=== PATIENT | male | born 1960 | race Caucasian/White ===

== ENCOUNTER 2016-08-24 14:39 | Emergency (ER) ==
[2016-08-24] MEDS ORDERED: ASPIRIN PO STA (14:51)
--- NOTE | 2016-08-24 14:51 | ED EKG INTERP ---
EKG Interpretation - EKG Time of EKG reading by physician:: 14:47 EKG Read and Signed by:: Fatmata Villar Jr EKG Interpretation (*Must complete 3 of following elements*): Abnormal Rate: 89 Rhythm: nsr [place]: left QRS: normal RI Interval: normal Attestation - Scribe Verification/Attestation Scribe:: Alexus Hutchinson Acting as Scribe for:: Fatmata Villar Jr Scribe documention review:: This chart was documented by a scribe and accurately reflects the service the provider performed and the decisions made by the provider.
[2016-08-24 15:02] LABS: MANUAL DIFF NEEDED? NO
[2016-08-24 15:08] LABS: BASO% 0.4 % (0.0-0.8); HEMATOCRIT 39.7 % (42.0-52.0); HEMOGLOBIN 13.7 g/dL (14.0-18.0); LYMPH# 0.56 X1000 (1.2-3.4); LYMPH% 10.8 % (20.5-51.1); MCH 31.4 PG (27-31); MCHC 34.5 g/dL (33-37); MCV 90.8 FL (81-99); MONO# 0.51 X1000 (0.11-0.59); MONO% 9.8 % (1.7-9.3); MPV 10.9 FL (7.4-10.4); PLT 111 X1000 (130-400); RBC 4.37 XMIL (4.7-6.1)
[2016-08-24 15:17] LABS: PROTIME 10.6 Seconds (9.2-11.7); PTT 24.3 Seconds (22.0-36.0)
[2016-08-24 15:21] LABS: AGAP 19; ALBUMIN 5.2 g/dL (3.5-5.0); ALKALINE PHOSPHATASE 62 U/L (32-122); BUN 11 mg/dL (8-22); CHLORIDE 91 mmol/L (98-107); COSMO 270; GOT 199 U/L (10-34); GPT 173 U/L (10-44); MAGNESIUM 1.6 mg/dL (1.5-2.7); POTASSIUM 4.5 mmol/L (3.5-5.1); SODIUM 135 mmol/L (136-145); TCO2 25 mmol/L (25-35); TOTAL BILIRUBIN 0.91 mg/dL (0.20-1.00); TOTAL PROTEIN 7.7 g/dL (6.3-8.3)
[2016-08-24 15:24] LABS: CK PROFILE 226 U/L (24-204)
[2016-08-24 15:38] LABS: CK INDEX 1.6 (0.0-2.5); CK-MB 3.62 ng/mL (0.0-5.0)
--- NOTE | 2016-08-24 16:00 | Diag Imaging Result Document ---
PROCEDURE NAME: CHEST-2 VIEWS - 08/24/2016 CHEST 2 VIEWS: COMPARISON: No comparison exam. FINDINGS: Heart size is normal. There is mild tortuosity of the thoracic aorta. The lungs appear clear. There is no pleural effusion or pneumothorax seen. IMPRESSION: No evidence of acute disease.
[2016-08-24 18:17] LABS: CK INDEX 1.5 (0.0-2.5); CK-MB 3.52 ng/mL (0.0-5.0)
--- NOTE | 2016-08-24 18:18 | PROVIDER DOCUMENTATION ---
HPI-General Adult - General Chief Complaint: Alcohol Withdrawal Stated Complaint: WITHDRAWLS Time Seen by Provider: 08/24/16 16:50 Source: patient, family Allergies/Adverse Reactions: Patient Allergies Allergy/AdvReac Type Severity Reaction Status Date / Time No Known Allergies Allergy Verified 08/24/16 16:31 - History of Present Illness -Gen Adult Nature of Presenting Problems: 55 year old WM presents with c/o shaking for 2-3 days. pt reports he drinks 1 bottle of wine a day and has drank heavier at times. pt reports he decided to seek assistance with withdrawal this evening because he is currently being monitored with the [facility] because of alcohol abuse and he is mandated to random alcohol and drug testing. he reports he was suppossed to be tested today and chose to seek treatment for withdrawal. he reports he last drank 2-3 days ago. pt reports he finished 12 week detox at [facility] in March. pt reports he has had chest pain for 2 days since he stopped drinking, it has been constant, center of chest, non-radiating, sharp in nature, denies change with inspiration/ expiration/movement. denies associated nausea, diaphoresis. Review of Systems - Adult - REVIEW OF SYSTEMS - ADULT Constitutional: reports: no symptoms reported. denies: chills, fever, fatique Eyes: reports: no symptoms reported. denies: discharge, blurred vision, double vision Ears, Nose, Mouth & Throat: reports: no symptoms reported. denies: ear discharge, ear pain, nose pain, loose teeth, throat pain, throat swelling Cardiovascular: reports: see HPI, chest pain. denies: irregular heart rate, palpitations, syncope Respiratory: reports: no symptoms reported. denies: chronic cough, cough, shortness of breath, wheezing Gastrointestinal: reports: no symptoms reported. denies: abdominal pain, diarrhea, nausea, vomiting Genitourinary: reports: no symptoms reported. denies: dysuria, hematuria, urgency Musculoskeletal: reports: no symptoms reported. denies: bone pain, joint pain, joint swelling, neck pain Integumentary: reports: no symptoms reported. denies: hives, rash, skin thickening Neurological: reports: no symptoms reported. denies: ataxia, dizziness/vertigo , numbness, paresthesia, tremors Psychiatric: reports: see HPI, alcohol/drug dependence Endocrine: reports: no symptoms reported. denies: cold intolerance, heat intolerance Hematologic/Lymphatic: reports: no symptoms reported Allergic/Immunologic: reports: no symptoms reported. denies: frequent infections All Other Systems: Reviewed and Negative Past History - Adult - PAST MEDICAL HISTORY-ADULT Review of Records: reports: Old Records Reviewed, Nursing Assessment Review, Medications Reviewed, Social history reviewed & non-contributory. Major Childhood Illnesses: reports: denies history Cardiovascular: reports: denies history Respiratory: reports: denies history Gastrointestinal: reports: denies history Obstetrical/Gynecological: reports: denies history Genitourinary: reports: denies history Musculoskeletal: reports: denies history Neurological: reports: denies history Endocrine/Immune: reports: denies history Other Conditions: reports: denies history - PRIOR SURGERIES/PROCEDURES Surgical/Procedure History: reports: none - PRIOR HOSPITALIZATIONS Prior Hospitalizations: reports: psychiatric or rehab - IMMUNIZATION STATUS Childhood Immunizations: See Nurse Assessment Flu Vaccine: See Nurse Assessment - FAMILY HISTORY Family History: reviewed, not pertinent - SOCIAL HISTORY Smoking: denies Substance Use: alcohol Alcohol Use Frequency: every day Number of drinks per typical drinking period:: 5-10 drinks Living Situation: alone Occupation: assistant prosecuting attorney Physical Exam-General - PHYSICAL EXAM-ADULT Initial Vital Signs Reviewed: Yes - CONSTITUTIONAL General Appearance: appears well, alert, no apparent distress. negative: mild distress, moderate distress, severe distress - EYES Eyes: PERRL/EOMI, pink conjunctivae. negative: conjuctival exudate, pale conjunctivae, sclera injected, scleral icterus, subconjunctival hemorrhage - HEAD, EARS, NOSE, MOUTH & THROAT HENMT: normocephalic/atraumatic, moist mucous membranes, normal ENT inspection - NECK Neck: non-tender, full range of motion, supple, normal inspection. negative: limited range of motion, tender lateral, tender midline - RESPIRATORY Respiratory: chest non-tender, lungs clear, normal breath sounds, no pleuratic chest pain, no respiratory distress, no accessory muscle use. negative: respiratory distress, decreased breath sounds, accessory muscle use, crackles, rales, rhonchi, stridor, wheezing - CARDIOVASCULAR Cardiovascular: normal peripheral pulses, regular rate, rhythm, no edema - GASTROINTESTINAL (ABDOMEN) Abdominal Exam: normal bowel sounds, non tender, soft. negative: distended, guarding, rigid, rebound, tenderness, hepatomegaly, spleenomegaly - GENITOURINARY Male Genitalia: deferred Rectal Exam: deferred Hemoccult Exam: deferred - LYMPHATIC Lymphatic: no adenopathy - MUSCULOSKELETAL Back Exam: normal inspection, no CVA tenderness, no vertebral tenderness. negative: CVA tenderness, decreased range of motion, vertebral tenderness Extremity: normal range of motion, non-tender, normal gait, normal inspection, no pedal edema, no calf tenderness, normal capillary refill. negative: slow capillary refill, swelling, tenderness Peripheral Pulses: radial (R): 3+, radial (L): 3+, dorsalis-pedis (R): 3+, dorsalis-pedis (L): 3+ - SKIN Integumentary: normal color, normal turgor, warm/dry. negative: pallor, petechiae, purpura - NEUROLOGIC Neurologic: grossly normal, no motor/sensory deficits, negative romberg's sign. negative: abnormal cerebellar tests, abnormal balloon design printer II-XII, abnormal gait, aphasia, EOM palsy, facial droop, focal weakness, motor weakness, sensory deficit - PSYCHIATRIC Psych/Mental Status: normal mood/affect, normal thought content, normal thought process, oriented x 3 Progress - PLAN OF CARE/RESULTS Progress/Plan/Lab Results: Laboratory Tests 08/24/16 08/24/16 08/24/16 14:53 14:53 14:53 WBC 5.18 RBC 4.37 L Hgb 13.7 L Hct 39.7 L MCV 90.8 MCH 31.4 H MCHC 34.5 RDW Std Deviation 15.9 H Plt Count 111 L MPV 10.9 H Immature Gran % (Auto) 0.0 Neut % (Auto) 79.0 H Lymph % (Auto) 10.8 L Rooks % (Auto) 9.8 H Eos % (Auto) 0.0 Baso % (Auto) 0.4 Immature Gran # (Auto) 0.00 Neut # (Auto) 4.09 Lymph # (Auto) 0.56 L Rooks # (Auto) 0.51 Eos # (Auto) 0.00 Baso # (Auto) 0.02 PT INR PTT (Actin FS) D-Dimer 0.26 Sodium 135 L Potassium 4.5 Chloride 91 L Carbon Dioxide 25 Anion Gap 19 BUN 11 Creatinine 0.9 Estimated GFR/1.73 m2 > 60 BUN/Creatinine Ratio 12 Glucose 107 H Calculated Osmolality 270 Calcium 10.0 Magnesium 1.6 Total Bilirubin 0.91 AST 199 H ALT 173 H Alkaline Phosphatase 62 Creatine Kinase 226 H Creatine Kinase Index 1.6 CK-MB (CK-2) 3.62 Troponin T Qdv-B-Zklqsgpvisl Pept Total Protein 7.7 Albumin 5.2 H Globulin 2.5 Albumin/Globulin Ratio 2.1 08/24/16 08/24/16 08/24/16 14:53 14:53 14:53 WBC RBC Hgb Hct MCV MCH MCHC RDW Std Deviation Plt Count MPV Immature Gran % (Auto) Neut % (Auto) Lymph % (Auto) Rooks % (Auto) Eos % (Auto) Baso % (Auto) Immature Gran # (Auto) Neut # (Auto) Lymph # (Auto) Rooks # (Auto) Eos # (Auto) Baso # (Auto) PT 10.6 INR 1.00 PTT (Actin FS) 24.3 D-Dimer Sodium Potassium Chloride Carbon Dioxide Anion Gap BUN Creatinine Estimated GFR/1.73 m2 BUN/Creatinine Ratio Glucose Calculated Osmolality Calcium Magnesium Total Bilirubin AST ALT Alkaline Phosphatase Creatine Kinase Creatine Kinase Index CK-MB (CK-2) Troponin T < 0.010 Dhk-B-Drvmtcfeckg Pept 30 Total Protein Albumin Globulin Albumin/Globulin Ratio 08/24/16 08/24/16 17:15 17:15 WBC RBC Hgb Hct MCV MCH MCHC RDW Std Deviation Plt Count MPV Immature Gran % (Auto) Neut % (Auto) Lymph % (Auto) Rooks % (Auto) Eos % (Auto) Baso % (Auto) Immature Gran # (Auto) Neut # (Auto) Lymph # (Auto) Rooks # (Auto) Eos # (Auto) Baso # (Auto) PT INR PTT (Actin FS) D-Dimer Sodium Potassium Chloride Carbon Dioxide Anion Gap BUN Creatinine Estimated GFR/1.73 m2 BUN/Creatinine Ratio Glucose Calculated Osmolality Calcium Magnesium Total Bilirubin AST ALT Alkaline Phosphatase Creatine Kinase 229 H Creatine Kinase Index 1.5 CK-MB (CK-2) 3.52 Troponin T < 0.010 Hxn-C-Pfzajfqpntl Pept Total Protein Albumin Globulin Albumin/Globulin Ratio Orders Category Date Time Status Cardiac Monitoring DIRECTED Care 08/24/16 14:51 Active Saline Loc NOW Care 08/24/16 14:51 Active CHEST-2 VIEWS [RAD] Stat Exams 08/24/16 14:51 Completed CBC WITH ELECTRONIC DIFF [HEME] Stat Lab 08/24/16 14:53 Completed CK PROFILE [SP CHEM] Stat Lab 08/24/16 14:53 Completed CK PROFILE [SP CHEM] Stat Lab 08/24/16 17:15 Completed COMPREHENSIVE METABOLIC PANEL [CHEM] Stat Lab 08/24/16 14:53 Completed D-DIMER [CHEM] Stat Lab 08/24/16 14:53 Completed MAGNESIUM [CHEM] Stat Lab 08/24/16 14:53 Completed PRO B-NATRIURETIC PEPTIDE Stat Lab 08/24/16 14:53 Completed PROTIME WITH INR [COAG] Stat Lab 08/24/16 14:53 Completed PTT [COAG] Stat Lab 08/24/16 14:53 Completed TROPONIN T Stat Lab 08/24/16 14:53 Completed TROPONIN T Stat Lab 08/24/16 17:15 Completed Aspirin Med 08/24/16 14:51 Discontinued 325 mg PO STAT STA Lorazepam [Ativan] Med 08/24/16 18:58 Discontinued 1 mg IM NOW ONE EKG [EKG] Stat Ther 08/24/16 14:51 Ordered Vital Signs - 24 hr 08/24/16 08/24/16 08/24/16 14:47 16:38 19:06 Temperature 98.9 F Pulse Rate 85 80 81 Respiratory 16 14 14 Rate Blood Pressure 155/93 132/94 145/90 O2 Sat by Pulse 100 98 97 Oximetry - XRAY 1 XRAY Study: Chest Impression: Normal (pre Dr. Villar) Departure - Departure Time of Disposition Order: 18:57 DIAGNOSIS: Elevated liver enzymes Alcohol dependence with withdrawal Qualifiers: Complication of substance-induced condition: uncomplicated Qualified Code(s): F10.230 - Alcohol dependence with withdrawal, uncomplicated Disposition: HOME 01 Certified Medical Emergency: Emergent Condition: Stable Additional Instructions: Follow up with your primary care doctor to monitor your liver function. ED Follow Up Instructions: You have been treated by a care provider in the Emergency Department. These instructions are being provided to you so you can have an understanding of how to care for yourself upon discharge. Upon discharge from the Emergency Department, you are responsible for making arrangements for follow-up care by a physician of your choice. Take all prescribed medications as directed. Return to the Emergency Department immediately for any new or worsening symptoms. You may call the Physician Referral phone number at [phone] to obtain a list of Physicians who are taking new patients. Prescriptions: Lorazepam 1 - 2 mg PO Q4-6H PRN PRN #20 tablet PRN Reason: alcohol withdrawl symptoms Ondansetron [Zofran] 4 mg PO Q6H PRN PRN #20 tablet PRN Reason: Nausea Referrals: None,PCP [Primary Care Provider] - Instructions: Alcohol Use Disorder, Chemical Dependency Attestation - Physician/ Mid-level Attestation Patient care was provided by Mid-level provider (SLITTER SCORER/PA):: Yes Mid-level provider:: Pipe Farrell Mid-level documentation review:: The Mid-level provider documentation, treatment plan and medical decision making was reviewed by the physician who agrees with all treatment and medical decision making by the MLP.
[2016-08-24] MEDS ORDERED: ATIVAN IM ONE (18:58)
[2016-08-24 19:06] VITALS: BP 145/90
--- NOTE | 2016-08-25 05:55 | EKG Report ---
Test Performed on : 08/24/2016 4:28:02 PM Test Reason : Chest Pain Blood Pressure : / mmHG Vent. Rate : 077 BPM Atrial Rate : 077 BPM P-R Int : 132 ms QRS Dur : 060 ms QT Int : 332 ms P-R-T Axes : 061 -66 022 degrees QTc Int : 375 ms Normal sinus rhythm. with sinus arrhythmia. Left axis deviation Abnormal ECG When compared with ECG of 24-AUG-2016 14:47, (Unconfirmed) No significant change was found Unconfirmed Result
--- NOTE | 2016-08-25 05:56 | EKG Report ---
Test Performed on : 08/24/2016 2:47:20 PM Test Reason : Chest Pain Blood Pressure : / mmHG Vent. Rate : 089 BPM Atrial Rate : 089 BPM P-R Int : 154 ms QRS Dur : 064 ms QT Int : 348 ms P-R-T Axes : 063 -74 021 degrees QTc Int : 423 ms Normal sinus rhythm. Left axis deviation Abnormal ECG No previous ECGs available Unconfirmed Result
== END 2016-08-24 19:21 | disposition home or self-care (01) ==
LOC: ED 14:39
DX: R74.8 Abnormal levels of other serum enzymes (principal); F10.230 Alcohol dependence with withdrawal, uncomplicated; R94.31 Abnormal electrocardiogram [ECG] [EKG]; R07.9 Chest pain, unspecified
CPT/HCPCS: 36415; 71020; 80053; 82550; 82553; 83735; 83880; 84484; 85025; 85379; 85610; 85730; 93005; 96374; J2060